=== PATIENT | female | born 1975 | race Caucasian/White ===

== ENCOUNTER → 2016-05-07 | Outpatient (CLI) | payer MEDICARE, OTHER ==
[~2016-05-07] MED LIST: ACULAR10 ML OU; AMOXICILLIN500 M1 PO; ATARAX PO; BENADRYL25 M1 PO; BUTALB-APAP-CA1 EACH PO; CELEXA20 MG PO; CITALOPRAM HBR40 MG PO; DIFLUCAN PO; FAMOTIDINE PO; ILOTYCIN1 GM OD; MEDROL4 MG/DOSE- PO; NYSTATIN15 GM OINT EXT; OMEPRAZOLE20 M1 PO; PEPCID AC20 MG PO; PHENERGAN DM1 ML PO; PREDNISONE PO; PRILOSEC20 MG PO; ROBITUSSIN A-C S5 ML PO; ROBITUSSIN-DM118 M1 PO; TAMIFLU75 M1 PO; TOPAMAX200 MG PO; VIBRAMYCIN100 M1 PO; VICODIN 5/1 TAB 5/50 PO; ZITHROMAX PO; [UNRECOGNIZED DRUG - REMARK] PO
--- NOTE | ~2016-05-07 | MY11 ---
[facility] A Service [facility] RADIOLOGY TEXT RESULTS PATIENT: YUN SALMERON LOCATION: [facility] : 71 UNIT #: [id number] AGE: [address]: Keren Rodriguez MD SEX: F ORDER DR: [id number] [place] [id number] MR#: [id number] Acc #: [id number] NAME: YUN SALMERON : 1975 SEX: F STUDY DATE/TIME: 05/07/2016 13:18 UNIT: [facility] ROOM: STUDY DESCRIPTION: MY Mammogram Screening Dig Rebel Attending Physician: Keren Rodriguez M.D. Referring Physician: Keren Rodriguez M.D. Ordering Physician: Lynda Navarro M.D. Primary Care Physician: Keren Rodriguez M.D. MEDICAL IMAGING REPORT This report is preliminary unless electronic signature is present. EXAM Bilateral digital screening mammogram with CAD. INDICATIONS Routine screening. No current complaints. No family history of breast cancer. COMPARISON 05/06/2015, 09/24/2013 FINDINGS MLO and CC digital views of each breast were obtained. The exam was reviewed with an FDA-approved CAD device. The breasts are almost entirely fatty replaced. There are no masses or abnormal calcifications. IMPRESSION No change, no evidence of malignancy. Patients over the age of 40 are entered into a reminder system with target due date for the next mammogram. A result letter will also be sent to the patient. BIRADS: 1 Negative Dictated by... Aleksey Figueroa M.D. THIS IS AN ELECTRONICALLY VERIFIED REPORT lAeksey Figueroa M.D. at 05/08/2016 7:13 AM [facility] A Service [facility] RADIOLOGY TEXT RESULTS PATIENT: YUN SALMERON LOCATION: [facility] : 71 UNIT #: [id number] AGE: [address]: Keren Rodriguez MD SEX: F ORDER DR: TD: 05/08/2016 04:36 JOB #: [id number] MEDICAL IMAGING REPORT
== END | disposition home or self-care (01) ==
LOC: SMAM 12:41
DX: Z12.31 Encounter for screening mammogram for malignant neoplasm of breast (principal)
CPT/HCPCS: G0202